=== PATIENT | male | born 1980 | race Caucasian/White ===

== ENCOUNTER 2022-03-30 10:11 | Emergency (ER) | payer SELFPAY ==
[2022-03-30 10:19] VITALS: BP 132/62; PULSE 73; RESP 18; TEMP 98.8; BMI 31.3
[2022-03-30] MEDS ORDERED: CEPHALEXIN MONOHYDRATE 500 MG CAPSULE (UD) PO ONE (11:43)
[2022-03-30] MEDS ORDERED: ACETAMINOPHEN 500 MG TABLET (FP) PO ONE (11:43)
[2022-03-30] MEDS ORDERED: DIPHTH,PERTUSS(ACELL),TET 0.5 ML DISP.SYRIN IM ONE ×2 (11:43→11:50)
[2022-03-30] MEDS ORDERED: CEPHALEXIN MONOHYDRATE 500 MG CAPSULE (UD) ONE (11:49)
[2022-03-30] MEDS ORDERED: ACETAMINOPHEN 500 MG TABLET (FP) ONE (11:49)
== END 2022-03-30 12:01 | disposition home or self-care (01) ==
LOC: JERFT 10:11
PROC: 3E0234Z Introduction of Serum, Toxoid and Vaccine into Muscle, Percutaneous Approach (ICD-10-PCS; principal; 2022-03-30)
DX: S61.412A Laceration without foreign body of left hand, initial encounter (principal); W27.0XXA Contact with workbench tool, initial encounter
CPT/HCPCS: 90715; 99284-25

== ENCOUNTER 2023-11-06 18:45 | Inpatient (IN) | payer OTHER ==
[2023-11-06 18:51] VITALS: BMI 34.4
[2023-11-06] MEDS ORDERED: ACETAMINOPHEN INJECTION 100 ML IVPB ONE (20:02)
[2023-11-06] MEDS ORDERED: FAMOTIDINE 20 MG/50 ML IVPB 20 MG/50 ML MG IVPB ONE (20:02)
[2023-11-06] MEDS ORDERED: ONDANSETRON 4 MG/2 ML VIAL ONE ×2 (20:02→22:06)
[2023-11-06] MEDS: ACETAMINOPHEN 1000 MG/100 ML BAG IVPB ONE (20:12)
[2023-11-06] MEDS: SODIUM CHLORIDE 1,000 ML IV STA ×2 (20:12→21:26)
[2023-11-06] MEDS: ONDANSETRON 4 MG/2 ML VIAL IVPUSH ONE ×2 (20:12→22:10)
[2023-11-06] MEDS: FAMOTIDINE 20 MG/50 ML IVPB 20 MG/50 ML MG IVPB ONE (20:12)
[2023-11-06 20:44] LABS: POTASSIUM 4.4 mmol/L (3.5-5.1)
[2023-11-06 20:46] LABS: ALBUMIN 3.3 g/dl (3.4-5.0)
[2023-11-06 20:49] LABS: CREATININE 0.7 mg/dL (0.55-1.3)
[2023-11-06 20:50] LABS: BILIRUBIN,TOTAL 1.1 mg/dL (0.2-1)
[2023-11-06 20:55] LABS: BLOOD UREA NITROGEN 13.1 mg/dL (7-18); TOT PROT 7.1 g/dl (6.4-8.2)
[2023-11-06 21:18] LABS: EOS % 0.8 % (0-4.5); HEMATOCRIT 37.9 % (35.4-49); HEMOGLOBIN 13.3 GM/dL (11.7-16.9); MCH 31.3 pg (25.7-33.7); MCHC 35.2 g/dl (32.0-35.9); RDW 12.9 % (11.9-15.9)
[2023-11-06 21:21] LABS: PH,URINE 5.5 (5.0-8.0); URINE APPEARANCE CLEAR; URINE BILIRUBIN NEGATIVE (NEGATIVE); URINE COLOR YELLOW; URINE GLUCOSE (UA) 3+ (NEGATIVE); URINE KETONE TRACE (NEGATIVE); URINE LEUK ESTERASE NEGATIVE (NEGATIVE); URINE NITRITE NEGATIVE (NEGATIVE); URINE PROTEIN NEGATIVE (NEGATIVE); URINE UROBILINOGEN 0.2 mg/dL (0.2-1.0)
[2023-11-06 21:21] LABS: MEAN PLT VOLUME 8.1 fl (7.5-11.1); PLATELET COUNT 296 10^3/uL (134-434); RBC 4.71 M/mm3 (4.00-5.60); WHITE BLOOD COUNT 12.6 K/mm3 (4.0-10.0)
[2023-11-06 21:22] LABS: BASO % 0.6 % (0-2.0); LYMPH % 21.1 % (8-40); MONO % 5.5 % (3.8-10.2)
[2023-11-06] MEDS: KETOROLAC TROMETHAMINE 15 MG/ML VIAL IVPUSH ONE (21:27)
[2023-11-06 21:33] LABS: VENOUS BASE EXCESS -1.2 mmol/L (-2-2); VENOUS O2 SATURATION 31.8 % (70-80); VENOUS PCO2 46.2 mmHg (38-52); VENOUS PH 7.347 (7.310-7.410)
[2023-11-06] MEDS ORDERED: MORPHINE SULFATE 2 MG/ML SYRINGE ONE (21:53)
[2023-11-06 21:58] LABS: CHOLESTEROL 354 mg/dL (50-200); LDL CHOLESTEROL (ONLY SJRH) 95 mg/dL (5-100)
[2023-11-06 22:00] LABS: HDL CHOLESTEROL 33 mg/dL (40-60)
[2023-11-06] MEDS: MORPHINE SULFATE 2 MG/ML SYRINGE IVPUSH ONE (22:00)
[2023-11-06] MEDS ORDERED: INSULIN ASPART SLIDING SCALE (NOVOLOG) 1 VIAL SQ ONE (22:56)
[2023-11-06] MEDS: INSULIN ASPART SLIDING SCALE (NOVOLOG) 1 VIAL SQ SCH (22:59)
[2023-11-07] MEDS ORDERED: KETOROLAC TROMETHAMINE 15 MG/ML VIAL ONE (01:08)
[2023-11-07] MEDS ORDERED: INSULIN (LEVEMIR) 100 UNITS/ML UNITS SQ ONE (01:09)
[2023-11-07] MEDS: INSULIN (LEVEMIR) 100 UNITS/ML UNITS SQ ONE (01:27)
[2023-11-07] MEDS: SODIUM CHLORIDE 1,000 ML IV SCH ×2 (01:28→04:00)
[2023-11-07] MEDS: KETOROLAC TROMETHAMINE 15 MG/ML VIAL IVPUSH PRN ×2 (01:28→07:58)
[2023-11-07] MEDS ORDERED: DEXTROSE 50%-WATER 25 GM/50 ML DISP.SYRIN IVPUSH PRN (01:47)
[2023-11-07] MEDS: INSULIN REGULAR 100 UNITS in SODIUM CHLORIDE 99 ML IVPB SCH ×4 (03:05→20:27)
[2023-11-07] MEDS: MUPIROCIN 2% TOPICAL OINTMENT FOR DECOLONIZATION NS SCH (03:07)
[2023-11-07] MEDS: DEXTROSE 5%-NORMAL SALINE 1,000 ML IV SCH ×2 (03:08→14:39)
[2023-11-07 03:41] LABS: COCAINE, UR NEGATIVE (NEGATIVE); METHADONE, UR NEGATIVE (NEGATIVE); URINE BARBITURATES NEGATIVE (NEGATIVE)
[2023-11-07 03:43] LABS: PHENCYCLIDINE,URINE NEGATIVE (NEGATIVE)
[2023-11-07 04:08] LABS: OPIATES, URI POSITIVE (NEGATIVE); URINE AMPHETAMINES NEGATIVE (NEGATIVE); URINE BENZODIAZEPINES NEGATIVE (NEGATIVE)
[2023-11-07 06:44] LABS: BASO % 0.8 % (0-2.0); EOS % 1.9 % (0-4.5); HEMATOCRIT 36.6 % (35.4-49); HEMOGLOBIN 13.3 GM/dL (11.7-16.9); LYMPH % 26.2 % (8-40); MCH 32.1 pg (25.7-33.7); MCHC 36.3 g/dl (32.0-35.9); MEAN CELL VOLUME 88.3 fl (80-96); MEAN PLT VOLUME 8.2 fl (7.5-11.1); MONO % 6.2 % (3.8-10.2); NEUT % 64.9 % (42.8-82.8); PLATELET COUNT 233 10^3/uL (134-434); RBC 4.14 M/mm3 (4.00-5.60); WHITE BLOOD COUNT 9.7 K/mm3 (4.0-10.0)
[2023-11-07 06:55] LABS: CHLORIDE 106 mmol/L (98-107); POTASSIUM 3.5 mmol/L (3.5-5.1); SODIUM 139 mmol/L (136-145)
[2023-11-07 06:57] LABS: ALBUMIN 2.7 g/dl (3.4-5.0); CALCIUM 7.2 mg/dL (8.5-10.1)
[2023-11-07 06:58] LABS: ANION GAP 7 mmol/L (4-13); BLOOD UREA NITROGEN 11.6 mg/dL (7-18); CO2 25 mmol/L (21-32); GLUCOSE,RANDOM 217 mg/dL (74-106); MAGNESIUM 1.6 mg/dL (1.8-2.4)
[2023-11-07] MEDS ORDERED: INSULIN (LEVEMIR) 100 UNITS/ML UNITS SQ SCH (07:00)
[2023-11-07 07:01] LABS: CREATININE 0.5 mg/dL (0.55-1.3); PHOSPHOROUS 1.9 mg/dL (2.5-4.9)
[2023-11-07 07:03] LABS: BILIRUBIN,TOTAL 0.7 mg/dL (0.2-1)
[2023-11-07 07:22] LABS: ALK PHOS 116 U/L (45-117); SGOT/AST 42 U/L (15-37); TOT PROT 5.5 g/dl (6.4-8.2)
[2023-11-07] MEDS: D5-1/2NS+20 MEQ KCL - 20 MEQ/1,000 ML INFUS.BAG IV SCH (07:57)
[2023-11-07] MEDS: MAGNESIUM 1GM/D5W - 1 GM/100 ML IVPB IVPB ONE (07:57)
[2023-11-07] MEDS: ENOXAPARIN NA (PORCINE) 40 MG/0.4 ML DISP.SYRIN SQ SCH (09:23)
[2023-11-07] MEDS: PANTOPRAZOLE SODIUM 40 MG VIAL IVPUSH SCH (09:23)
[2023-11-07] MEDS ORDERED: ENOXAPARIN NA (PORCINE) 40 MG/0.4 ML DISP.SYRIN SQ SCH (10:00)
[2023-11-07] MEDS: POTASSIUM PHOSPHATE 30 MM in DEXTROSE 5%-WATER - 250 ML IVPB ONE (14:05)
[2023-11-07] MEDS: INSULIN DRIP - PLEASE ORDER UNDER SETS NR SCH (14:39)
[2023-11-07] MEDS: D5-LR+20 MEQ KCL - 20 MEQ/1,000 ML INFUS.BAG IV SCH (20:25)
[2023-11-07] MEDS: CHLORHEXIDINE GLUCONATE 4% CLEANSER FOR DECOLONIZATION TP SCH (21:08)
[2023-11-07 23:08] LABS: POTASSIUM 3.6 mmol/L (3.5-5.1)
[2023-11-07 23:10] LABS: ALBUMIN 2.7 g/dl (3.4-5.0); CALCIUM 8.1 mg/dL (8.5-10.1)
[2023-11-07 23:11] LABS: BLOOD UREA NITROGEN 6.9 mg/dL (7-18)
[2023-11-07 23:15] LABS: BILIRUBIN,TOTAL 0.5 mg/dL (0.2-1); CREATININE 0.6 mg/dL (0.55-1.3); TOT PROT 5.5 g/dl (6.4-8.2)
[2023-11-08] MEDS: INSULIN (LEVEMIR) 100 UNITS/ML UNITS SQ SCH ×2 (00:54→22:20)
[2023-11-08] MEDS: D5-LR+20 MEQ KCL - 20 MEQ/1,000 ML INFUS.BAG IV SCH (01:04)
[2023-11-08] MEDS ORDERED: DEXTROSE 50%-WATER - 25 GM/50 ML VIAL IVPUSH PRN (01:04)
[2023-11-08] MEDS: INSULIN ASPART SLIDING SCALE (NOVOLOG) 1 VIAL SQ SCH ×2 (06:48→17:44)
[2023-11-08] MEDS: GEMFIBROZIL 600 MG TABLET (FP) PO SCH ×2 (06:51→17:27)
[2023-11-08 07:00] LABS: HEMATOCRIT 37.4 % (35.4-49); MCH 31.1 pg (25.7-33.7); MCHC 34.7 g/dl (32.0-35.9); MEAN CELL VOLUME 89.6 fl (80-96); MEAN PLT VOLUME 8.2 fl (7.5-11.1); PLATELET COUNT 229 10^3/uL (134-434); RBC 4.17 M/mm3 (4.00-5.60); RDW 13.5 % (11.9-15.9); WHITE BLOOD COUNT 9.4 K/mm3 (4.0-10.0)
[2023-11-08 07:16] LABS: POTASSIUM 3.8 mmol/L (3.5-5.1)
[2023-11-08 07:23] LABS: CALCIUM 8.3 mg/dL (8.5-10.1)
[2023-11-08 07:24] LABS: ALBUMIN 2.7 g/dl (3.4-5.0); BLOOD UREA NITROGEN 7.5 mg/dL (7-18); MAGNESIUM 1.9 mg/dL (1.8-2.4)
[2023-11-08 07:28] LABS: BILIRUBIN,TOTAL 0.7 mg/dL (0.2-1); CREATININE 0.5 mg/dL (0.55-1.3); PHOSPHOROUS 3.4 mg/dL (2.5-4.9); TOT PROT 5.5 g/dl (6.4-8.2)
[2023-11-08 14:38] LABS: PHOSPHOROUS 2.8 mg/dL (2.5-4.9)
[2023-11-08] MEDS ORDERED: DEXTROSE 50%-WATER 25 GM/50 ML DISP.SYRIN IVPUSH PRN (14:50)
[2023-11-08] MEDS ORDERED: LORazepam 2 MG TABLET PO PRN (16:14)
[2023-11-08] MEDS ORDERED: LORazepam 1 MG TABLET PO PRN (16:29)
[2023-11-08] MEDS: KETOROLAC TROMETHAMINE 15 MG/ML VIAL IVPUSH PRN (17:24)
[2023-11-08] MEDS ORDERED: CHLORHEXIDINE GLUCONATE 4% CLEANSER FOR DECOLONIZATION TP SCH (22:00)
[2023-11-08] MEDS ORDERED: MUPIROCIN 2% TOPICAL OINTMENT FOR DECOLONIZATION NS SCH (22:00)
[2023-11-08] MEDS ORDERED: ATORVASTATIN CA 40 MG TABLET (FP) PO SCH (22:00)
[2023-11-08] MEDS ORDERED: INSULIN (LEVEMIR) 100 UNITS/ML UNITS SQ SCH (22:00)
[2023-11-08] MEDS: ATORVASTATIN CA 40 MG TABLET (FP) PO SCH (22:22)
[2023-11-08 23:55] VITALS: RESP 18
[2023-11-09] MEDS: ENOXAPARIN NA (PORCINE) 40 MG/0.4 ML DISP.SYRIN SQ SCH (09:15)
[2023-11-09] MEDS: THIAMINE 100 MG TABLET PO SCH (09:16)
[2023-11-09] MEDS: MULTIVITAMINS (DAILY MVI) TABLET (FP) PO SCH (09:16)
[2023-11-09] MEDS: CYANOCOBALAMIN (VITAMIN B-12) 100 MCG TABLET PO SCH (09:16)
[2023-11-09] MEDS: PANTOPRAZOLE SODIUM 40 MG VIAL IVPUSH SCH (09:16)
[2023-11-09 12:24] LABS: BASO % 0.7 % (0-2.0); EOS % 5.2 % (0-4.5); HEMATOCRIT 40.9 % (35.4-49); HEMOGLOBIN 13.9 GM/dL (11.7-16.9); LYMPH % 28.4 % (8-40); MCH 30.9 pg (25.7-33.7); MCHC 33.9 g/dl (32.0-35.9); MEAN PLT VOLUME 8.6 fl (7.5-11.1); MONO % 7.8 % (3.8-10.2); NEUT % 57.9 % (42.8-82.8); PLATELET COUNT 234 10^3/uL (134-434); RBC 4.49 M/mm3 (4.00-5.60); RDW 13.7 % (11.9-15.9); WHITE BLOOD COUNT 6.5 K/mm3 (4.0-10.0)
[2023-11-09 12:46] LABS: POTASSIUM 4.1 mmol/L (3.5-5.1)
[2023-11-09 12:48] LABS: CALCIUM 8.5 mg/dL (8.5-10.1)
[2023-11-09 12:49] LABS: MAGNESIUM 1.9 mg/dL (1.8-2.4)
[2023-11-09 12:52] LABS: CREATININE 0.6 mg/dL (0.55-1.3); PHOSPHOROUS 2.8 mg/dL (2.5-4.9)
[2023-11-09 12:53] LABS: BILIRUBIN,TOTAL 0.9 mg/dL (0.2-1); TOT PROT 6.3 g/dl (6.4-8.2)
[2023-11-09 15:43] VITALS: BP 109/72; PULSE 56; TEMP 98.8
== END 2023-11-09 14:20 | disposition home or self-care (01) | DRG 282 ==
LOC: JER 18:45 → JERBED 21:35 → JICU 11-07 02:43 → J5S 11-08 14:32
PROVIDERS: ADMIT Internal Medicine; ATTEND Internal Medicine
DX: K85.90 Acute pancreatitis without necrosis or infection, unspecified (principal); E11.65 Type 2 diabetes mellitus with hyperglycemia; E78.1 Pure hyperglyceridemia; K76.0 Fatty (change of) liver, not elsewhere classified; F10.10 Alcohol abuse, uncomplicated; E83.51 Hypocalcemia; F17.210 Nicotine dependence, cigarettes, uncomplicated
CPT/HCPCS: 0241U-QW; 36415; 76705-TC; 80053; 80061; 80307; 81003; 82010; 82803; 82962; 83036; 83605; 83690; 83735; 84100; 84132; 84478; 85025; 85027; 87086; 93005; 93010; 99285-25; J0131

== ENCOUNTER 2023-11-25 15:10 | Emergency (ER) | payer OTHER ==
[2023-11-25 15:23] VITALS: PULSE 46; BMI 28.3
[2023-11-25] MEDS ORDERED: ASPIRIN 81 MG CHEWABLE TABLETS ONE (16:29)
[2023-11-25] MEDS: ASPIRIN 81 MG CHEWABLE TABLETS PO ONE (16:32)
[2023-11-25 16:40] LABS: BASO % 0.9 % (0-2.0); EOS % 4.3 % (0-4.5); HEMATOCRIT 40.3 % (35.4-49); HEMOGLOBIN 13.9 GM/dL (11.7-16.9); LYMPH % 41.1 % (8-40); MCH 31.1 pg (25.7-33.7); MCHC 34.5 g/dl (32.0-35.9); MEAN PLT VOLUME 7.3 fl (7.5-11.1); MONO % 6.5 % (3.8-10.2); NEUT % 47.2 % (42.8-82.8); PLATELET COUNT 254 10^3/uL (134-434); RBC 4.48 M/mm3 (4.00-5.60); WHITE BLOOD COUNT 7.5 K/mm3 (4.0-10.0)
[2023-11-25 16:54] LABS: POTASSIUM 4.2 mmol/L (3.5-5.1)
[2023-11-25 16:55] LABS: CALCIUM 8.7 mg/dL (8.5-10.1)
[2023-11-25 16:56] LABS: ALBUMIN 3.6 g/dl (3.4-5.0); BLOOD UREA NITROGEN 12.7 mg/dL (7-18)
[2023-11-25 16:59] LABS: CREATININE 0.8 mg/dL (0.55-1.3)
[2023-11-25 17:01] LABS: BILIRUBIN,TOTAL 0.4 mg/dL (0.2-1); TOT PROT 6.7 g/dl (6.4-8.2)
[2023-11-25 17:57] LABS: HIV INTERPRETATION NEGATIVE (NEGATIVE)
[2023-11-25 19:13] VITALS: BP 126/82; RESP 16; TEMP 98
== END 2023-11-25 19:13 | disposition home or self-care (01) ==
LOC: JER 15:10
DX: R07.9 Chest pain, unspecified (principal); R00.1 Bradycardia, unspecified; Z20.822 Contact with and (suspected) exposure to COVID-19
CPT/HCPCS: 0241U-QW; 36415; 71045-TC-FY; 80053; 84484; 85025; 86803; 87389; 93005; 93010; 99285-25

== ENCOUNTER 2024-04-09 16:01 | Inpatient (IN) | payer OTHER ==
[2024-04-09] MEDS ORDERED: FAMOTIDINE 20 MG/50 ML IVPB 20 MG/50 ML MG IVPB ONE (17:04)
[2024-04-09] MEDS ORDERED: ACETAMINOPHEN INJECTION 100 ML ONE (17:04)
[2024-04-09] MEDS: ACETAMINOPHEN 1000 MG/100 ML BAG IVPB ONE (17:23)
[2024-04-09] MEDS: FAMOTIDINE 20 MG/50 ML IVPB 20 MG/50 ML MG IVPB ONE (17:23)
[2024-04-09 17:28] LABS: VENOUS BASE EXCESS -1.5 mmol/L (-2-2); VENOUS O2 SATURATION 27.1 % (70-80); VENOUS PCO2 46.7 mmHg (38-52); VENOUS PH 7.34 (7.310-7.410)
[2024-04-09 17:37] LABS: BASO % 0.4 % (0-2.0); EOS % 0.8 % (0-4.5); HEMATOCRIT 44.5 % (35.4-49); HEMOGLOBIN 17.4 GM/dL (11.7-16.9); LYMPH % 24.6 % (8-40); MCH 33.5 pg (25.7-33.7); MCHC 39.2 g/dl (32.0-35.9); MEAN CELL VOLUME 85.3 fl (80-96); MEAN PLT VOLUME 7.8 fl (7.5-11.1); MONO % 5.6 % (3.8-10.2); NEUT % 68.6 % (42.8-82.8); PLATELET COUNT 343 10^3/uL (134-434); RBC 5.21 M/mm3 (4.00-5.60); RDW 12.8 % (11.9-15.9); WHITE BLOOD COUNT 12.5 K/mm3 (4.0-10.0)
[2024-04-09 18:00] LABS: CHLORIDE 97 mmol/L (98-107); POTASSIUM 4.8 mmol/L (3.5-5.1); SODIUM 130 mmol/L (136-145)
[2024-04-09 18:03] LABS: GLUCOSE,RANDOM 281 mg/dL (74-106)
[2024-04-09 18:04] LABS: ANION GAP 6 mmol/L (4-13); CO2 28 mmol/L (21-32); MAGNESIUM 1.8 mg/dL (1.8-2.4)
[2024-04-09 18:06] LABS: CREATININE 0.8 mg/dL (0.55-1.3)
[2024-04-09 18:13] LABS: ALBUMIN 3.6 g/dl (3.4-5.0); ALK PHOS 173 U/L (45-117); BILIRUBIN,TOTAL 1.3 mg/dL (0.2-1); BLOOD UREA NITROGEN 15.3 mg/dL (7-18); CALCIUM 6.6 mg/dL (8.5-10.1)
[2024-04-09 18:51] LABS: HIV INTERPRETATION NEGATIVE (NEGATIVE)
[2024-04-09 19:28] LABS: SGOT/AST 73 U/L (15-37); SGPT/ALT 68 U/L (13-61)
[2024-04-09] MEDS: SODIUM CHLORIDE 0.9% 500 ML INFUS.BAG IV ONE (20:51)
[2024-04-09 21:20] LABS: CHOLESTEROL 322 mg/dL (50-200)
[2024-04-09 21:21] LABS: LDL CHOLESTEROL (ONLY SJRH) 110 mg/dL (5-100)
[2024-04-09 21:23] LABS: HDL CHOLESTEROL 32 mg/dL (40-60)
[2024-04-09 23:07] LABS: EPI CELLS 5 /uL (0-25.1); HYALINE CASTS 0 /uL (0-3.1); PH,URINE 5.5 (5.0-8.0); URINE APPEARANCE CLEAR; URINE BACTERIA 33 /uL (0-1359); URINE BILIRUBIN NEGATIVE (NEGATIVE); URINE COLOR YELLOW; URINE GLUCOSE (UA) 2+ (NEGATIVE); URINE KETONE 1+ (NEGATIVE); URINE LEUK ESTERASE NEGATIVE (NEGATIVE); URINE NITRITE NEGATIVE (NEGATIVE); URINE PROTEIN 1+ (NEGATIVE); URINE RBC 10 /uL (0-23.9); URINE WBC 10 /uL (0-25.8)
[2024-04-09 23:29] LABS: POTASSIUM 3.9 mmol/L (3.5-5.1); SODIUM 134 mmol/L (136-145)
[2024-04-09 23:30] LABS: CHLORIDE 102 mmol/L (98-107)
[2024-04-09 23:33] LABS: ALBUMIN 3.3 g/dl (3.4-5.0); ANION GAP 6 mmol/L (4-13); CO2 26 mmol/L (21-32); GLUCOSE,RANDOM 261 mg/dL (74-106); MAGNESIUM 1.7 mg/dL (1.8-2.4)
[2024-04-09 23:34] LABS: BLOOD UREA NITROGEN 15.5 mg/dL (7-18)
[2024-04-09 23:36] LABS: CREATININE 0.7 mg/dL (0.55-1.3); PHOSPHOROUS 2.5 mg/dL (2.5-4.9)
[2024-04-09 23:37] LABS: BILIRUBIN,TOTAL 0.8 mg/dL (0.2-1)
[2024-04-09 23:38] LABS: TOT PROT 6.8 g/dl (6.4-8.2)
[2024-04-09 23:39] LABS: ALK PHOS 144 U/L (45-117)
[2024-04-09] MEDS ORDERED: ONDANSETRON 4 MG/2 ML VIAL ONE (23:43)
[2024-04-09] MEDS ORDERED: PIPERACILLIN/TAZOB 4.5 GM 4.5 GM/100 ML BAG IVPB ONE (23:43)
[2024-04-09] MEDS: PIPERACILLIN/TAZOB 4.5 GM 4.5 GM in DEXTROSE 5%-WATER 100 ML IVPB ONE (23:54)
[2024-04-09] MEDS: LACTATED RINGERS SOLUTION 1000 ML INFUS.BAG IV ONE (23:54)
[2024-04-09] MEDS: ONDANSETRON 4 MG/2 ML VIAL IVPUSH ONE (23:54)
[2024-04-10 00:03] LABS: SGOT/AST 70 U/L (15-37); SGPT/ALT < 120 U/L (13-61)
[2024-04-10] MEDS ORDERED: VANCOMYCIN 1 GM PREMIX (F) 1 GM/200 ML BAG ONE (00:08)
[2024-04-10] MEDS: INSULIN REGULAR 100 UNITS in SODIUM CHLORIDE 99 ML IVPB SCH (00:28)
[2024-04-10] MEDS: DEXTROSE 5%-NORMAL SALINE 1,000 ML IV SCH (00:29)
[2024-04-10] MEDS: VANCOMYCIN 1,000 MG in DEXTROSE 5%-WATER - 250 ML IVPB ONE (00:30)
[2024-04-10 01:15] LABS: VENOUS BASE EXCESS -1.4 mmol/L (-2-2); VENOUS O2 SATURATION 58.7 % (70-80); VENOUS PCO2 45.4 mmHg (38-52); VENOUS PH 7.35 (7.310-7.410)
[2024-04-10 01:39] LABS: CHOLESTEROL 299 mg/dL (50-200)
[2024-04-10 01:40] LABS: LDL CHOLESTEROL (ONLY SJRH) 82 mg/dL (5-100)
[2024-04-10 01:41] LABS: HDL CHOLESTEROL 33 mg/dL (40-60)
[2024-04-10] MEDS: morphine CARPU-JECT 4 MG/1 ML DISP.SYRIN IVPUSH ONE (01:46)
[2024-04-10] MEDS: LACTATED RINGERS SOLUTION 1000 ML INFUS.BAG IV ONE (02:40)
[2024-04-10 03:38] LABS: POTASSIUM 3.3 mmol/L (3.5-5.1)
[2024-04-10 03:40] LABS: ALBUMIN 2.9 g/dl (3.4-5.0); CALCIUM 7.4 mg/dL (8.5-10.1)
[2024-04-10 03:41] LABS: MAGNESIUM 1.8 mg/dL (1.8-2.4)
[2024-04-10] MEDS ORDERED: KETOROLAC TROMETHAMINE 15 MG/ML VIAL ONE (03:42)
[2024-04-10] MEDS ORDERED: POTASSIUM CHLORIDE ORAL LIQUID 20 MEQ/15 ML ONE (03:43)
[2024-04-10 03:44] LABS: CREATININE 0.7 mg/dL (0.55-1.3); PHOSPHOROUS 1.8 mg/dL (2.5-4.9)
[2024-04-10 03:45] LABS: BILIRUBIN,TOTAL 0.7 mg/dL (0.2-1)
[2024-04-10] MEDS: POTASSIUM CHLORIDE ORAL LIQUID 20 MEQ/15 ML PO ONE ×2 (03:49→18:40)
[2024-04-10] MEDS: KETOROLAC TROMETHAMINE 15 MG/ML VIAL IVPUSH ONE (03:49)
[2024-04-10] MEDS: DEXTROSE 50%-WATER - 25 GM/50 ML VIAL IVPUSH PRN (03:49)
[2024-04-10 05:19] LABS: BLOOD UREA NITROGEN 12.9 mg/dL (7-18)
[2024-04-10] MEDS: KCL 10 MEQ IVPB 10 MEQ/100 ML INFUS.BAG IVPB SCH (05:21)
[2024-04-10] MEDS: DEXTROSE 10%-WATER - 1,000 ML IV SCH ×2 (05:27→13:16)
[2024-04-10] MEDS: LACTATED RINGERS SOLUTION 1,000 ML with POTASSIUM CHLORIDE 20 MEQ IV ONE (05:31)
[2024-04-10 07:06] LABS: POTASSIUM 3.9 mmol/L (3.5-5.1)
[2024-04-10 07:12] LABS: CALCIUM 7.5 mg/dL (8.5-10.1)
[2024-04-10 07:13] LABS: ALBUMIN 2.8 g/dl (3.4-5.0); BLOOD UREA NITROGEN 11.4 mg/dL (7-18); MAGNESIUM 1.6 mg/dL (1.8-2.4)
[2024-04-10 07:16] LABS: CREATININE 0.6 mg/dL (0.55-1.3); PHOSPHOROUS 2.4 mg/dL (2.5-4.9)
[2024-04-10 07:17] LABS: BILIRUBIN,TOTAL 0.6 mg/dL (0.2-1)
[2024-04-10 07:18] LABS: TOT PROT 5.8 g/dl (6.4-8.2)
[2024-04-10 08:30] LABS: BASO % 0.3 % (0-2.0); EOS % 2.7 % (0-4.5); HEMOGLOBIN 13.7 GM/dL (11.7-16.9); LYMPH % 26.2 % (8-40); MCH 30.5 pg (25.7-33.7); MCHC 35.2 g/dl (32.0-35.9); MEAN CELL VOLUME 86.7 fl (80-96); MEAN PLT VOLUME 7.9 fl (7.5-11.1); NEUT % 63.8 % (42.8-82.8); PLATELET COUNT 249 10^3/uL (134-434); RDW 12.9 % (11.9-15.9); WHITE BLOOD COUNT 9.4 K/mm3 (4.0-10.0)
[2024-04-10] MEDS: MAGNESIUM 2GM/50ML STERILE WATER IVPB IVPB ONE (08:30)
[2024-04-10] MEDS ORDERED: NIACIN 500 MG TABLET PO SCH (10:00)
[2024-04-10] MEDS ORDERED: ACETAMINOPHEN 1000 MG/100 ML BAG IVPB PRN (11:10)
[2024-04-10] MEDS ORDERED: GEMFIBROZIL 600 MG TABLET (FP) PO SCH (16:30)
[2024-04-10 19:13] LABS: POTASSIUM 3.6 mmol/L (3.5-5.1)
[2024-04-10 19:15] LABS: BLOOD UREA NITROGEN 7.1 mg/dL (7-18); CALCIUM 8.5 mg/dL (8.5-10.1)
[2024-04-10 19:19] LABS: CREATININE 0.6 mg/dL (0.55-1.3)
[2024-04-11 07:20] LABS: BASO % 0.8 % (0-2.0); EOS % 5.9 % (0-4.5); HEMATOCRIT 41.8 % (35.4-49); HEMOGLOBIN 14.2 GM/dL (11.7-16.9); LYMPH % 26.9 % (8-40); MCH 29.8 pg (25.7-33.7); MEAN CELL VOLUME 87.7 fl (80-96); MEAN PLT VOLUME 7.4 fl (7.5-11.1); MONO % 6.7 % (3.8-10.2); NEUT % 59.7 % (42.8-82.8); PLATELET COUNT 236 10^3/uL (134-434); RBC 4.76 M/mm3 (4.00-5.60); RDW 13.2 % (11.9-15.9); WHITE BLOOD COUNT 8.4 K/mm3 (4.0-10.0)
[2024-04-11 07:33] LABS: POTASSIUM 4.4 mmol/L (3.5-5.1)
[2024-04-11 07:39] LABS: CALCIUM 8.6 mg/dL (8.5-10.1)
[2024-04-11 07:40] LABS: BLOOD UREA NITROGEN 9.1 mg/dL (7-18); MAGNESIUM 1.9 mg/dL (1.8-2.4)
[2024-04-11 07:42] LABS: PHOSPHOROUS 2.9 mg/dL (2.5-4.9)
[2024-04-11 07:43] LABS: BILIRUBIN,TOTAL 0.9 mg/dL (0.2-1); CREATININE 0.6 mg/dL (0.55-1.3)
[2024-04-11 07:44] LABS: TOT PROT 6.3 g/dl (6.4-8.2)
[2024-04-11] MEDS: MAGNESIUM SULF 50% (8.12 MEQ/2 ML-1 GM VIAL) IVPB ONE (08:43)
[2024-04-11] MEDS: INSULIN (LEVEMIR) 100 UNITS/ML UNITS SQ SCH (09:17)
[2024-04-11] MEDS: ENOXAPARIN NA (PORCINE) 40 MG/0.4 ML DISP.SYRIN SQ SCH (09:18)
[2024-04-11] MEDS: LACTATED RINGERS SOLUTION 1,000 ML/1,000 ML INFUS.BAG IV SCH (09:18)
[2024-04-11] MEDS: NAPH,MB-DB/K PH,MBDB POWDER PACKET PO ONE (11:26)
[2024-04-11] MEDS: INSULIN ASPART SLIDING SCALE (NOVOLOG) 1 VIAL SQ SCH (12:38)
[2024-04-11 13:01] VITALS: PULSE 77; RESP 19
[2024-04-11 13:34] VITALS: BMI 30.7
[2024-04-11 15:19] VITALS: BP 119/72; TEMP 98.6
[2024-04-11] MEDS ORDERED: GEMFIBROZIL 600 MG TABLET (FP) PO SCH (16:30)
== END 2024-04-11 16:55 | disposition home or self-care (01) | DRG 282 ==
LOC: JER 16:01 → JERBED 22:45 → J2W 04-10 04:17
PROVIDERS: ADMIT Internal Medicine Pulmonary Disease; ATTEND Internal Medicine Pulmonary Disease
DX: K85.90 Acute pancreatitis without necrosis or infection, unspecified (principal); J12.82 Pneumonia due to coronavirus disease 2019; U07.1 COVID-19; E11.65 Type 2 diabetes mellitus with hyperglycemia; E83.51 Hypocalcemia; E78.5 Hyperlipidemia, unspecified; F10.90 Alcohol use, unspecified, uncomplicated; R74.01 Elevation of levels of liver transaminase levels
CPT/HCPCS: 0241U-QW; 36415; 71046-TC-FY; 74177-TC; 76705-TC; 80048; 80053; 80061; 81003; 82010; 82803; 82962; 83036; 83605; 83690; 83735; 84100; 84478; 84484; 85025; 86803; 87086; 87389; 93005; 93010; 99285-25; J0131

== ENCOUNTER 2024-08-17 13:57 | Inpatient (IN) | payer OTHER ==
[2024-08-17] MEDS ORDERED: FAMOTIDINE 20 MG/50 ML IVPB 20 MG/50 ML MG IVPB ONE (15:15)
[2024-08-17] MEDS: FAMOTIDINE 20 MG/50 ML IVPB 20 MG/50 ML MG IVPB ONE (15:33)
[2024-08-17] MEDS: SODIUM CHLORIDE 0.9% 500 ML INFUS.BAG IV ONE ×2 (15:33→16:36)
[2024-08-17 15:46] LABS: ABSOLUTE IMMATURE GRANULOCYTES 0.03 x10^3/uL (0.0-0.031); BASOPHILS # 0.07 x10^3/uL (0.01-0.08); EOSINOPHIL % 2.4 % (0.8-7.0); HEMATOCRIT 47.3 % (40.1-51.0); HEMOGLOBIN 17.3 g/dL (13.7-17.5); MCHC 36.6 g/dl (32.3-36.5); MEAN CELL VOLUME 85.1 fl (79.0-92.2); MEAN PLT VOLUME 9.5 fl (9.4-12.4); MONOCYTE % 5.9 % (5.3-12.2); PLATELET COUNT 270 x10^3/uL (163-337); RDW 11.9 % (12.1-15.9)
[2024-08-17 16:03] LABS: CHLORIDE 96 mmol/L (98-107); POTASSIUM 3.9 mmol/L (3.5-5.1); SODIUM 134 mmol/L (136-145)
[2024-08-17 16:05] LABS: ALBUMIN 3.8 g/dl (3.4-5.0); ANION GAP 10 mmol/L (4-13); CO2 28 mmol/L (21-32); GLUCOSE,RANDOM 287 mg/dL (74-106)
[2024-08-17 16:10] LABS: BILIRUBIN,TOTAL 0.8 mg/dL (0.2-1); CHOLESTEROL 315 mg/dL (50-200); CREATININE 0.8 mg/dL (0.55-1.3); LDL CHOLESTEROL (ONLY SJRH) 81 mg/dL (5-100)
[2024-08-17 16:11] LABS: ALK PHOS 187 U/L (45-117); HDL CHOLESTEROL 43 mg/dL (40-60)
[2024-08-17] MEDS ORDERED: morphine SULFATE 4 MG/ML VIAL ONE (16:49)
[2024-08-17 16:57] LABS: BLOOD UREA NITROGEN 14.3 mg/dL (7-18); CALCIUM 8.2 mg/dL (8.5-10.1); TOT PROT 7.7 g/dl (6.4-8.2)
[2024-08-17] MEDS: morphine CARPU-JECT 4 MG/1 ML DISP.SYRIN IVPUSH ONE (17:01)
[2024-08-17] MEDS ORDERED: INSULIN REGULAR HUMAN 100 UNITS/ML *VIAL ONE (17:38)
[2024-08-17] MEDS: INSULIN REGULAR 100 UNITS in SODIUM CHLORIDE 99 ML IVPB SCH ×3 (18:01→22:07)
[2024-08-17] MEDS: INSULIN DRIP - PLEASE ORDER UNDER SETS NR ONE (18:03)
[2024-08-17] MEDS: DEXTROSE 5%-NORMAL SALINE 1,000 ML IV SCH ×2 (18:33→22:26)
[2024-08-17] MEDS ORDERED: ALBUTEROL SO4 2.5/IPRATROPIUM 0.5 INH SOL 3 ML VIAL.NEB. NEB PRN (18:34)
[2024-08-17] MEDS: levETIRAcetam 500 MG/5 ML INJECTION VIAL IVPB ONE (20:06)
[2024-08-17 20:36] LABS: URINE APPEARANCE CLEAR; URINE BILIRUBIN NEGATIVE (NEGATIVE); URINE COLOR YELLOW; URINE GLUCOSE (UA) 3+ (NEGATIVE); URINE KETONE NEGATIVE (NEGATIVE); URINE LEUK ESTERASE NEGATIVE (NEGATIVE); URINE NITRITE NEGATIVE (NEGATIVE); URINE PROTEIN NEGATIVE (NEGATIVE); URINE UROBILINOGEN 0.2 mg/dL (0.2-1.0)
[2024-08-17 20:37] LABS: COCAINE, UR NEGATIVE (NEGATIVE); METHADONE, UR NEGATIVE (NEGATIVE); PHENCYCLIDINE,URINE NEGATIVE (NEGATIVE); URINE BENZODIAZEPINES NEGATIVE (NEGATIVE)
[2024-08-17 20:38] LABS: OPIATES, URI POSITIVE (NEGATIVE); URINE BARBITURATES NEGATIVE (NEGATIVE)
[2024-08-17 20:45] LABS: POTASSIUM 3.5 mmol/L (3.5-5.1)
[2024-08-17 20:49] LABS: ALBUMIN 3.4 g/dl (3.4-5.0); BLOOD UREA NITROGEN 11.8 mg/dL (7-18); CALCIUM 8.4 mg/dL (8.5-10.1)
[2024-08-17 20:54] LABS: BILIRUBIN,TOTAL 0.6 mg/dL (0.2-1); CREATININE 0.6 mg/dL (0.55-1.3); TOT PROT 6.6 g/dl (6.4-8.2)
[2024-08-17] MEDS ORDERED: KCL 20 MEQ PREMIX BAG 20 MEQ/100 ML INFUS.BAG IVPB SCH (21:30)
[2024-08-17] MEDS ORDERED: INSULIN DRIP - PLEASE ORDER UNDER SETS NR ONE (21:39)
[2024-08-17] MEDS: D5-NS + 20 MEQ KCL - 20 MEQ/1,000 ML INFUS.BAG IV SCH ×2 (21:47→21:59)
[2024-08-17] MEDS: CHLORHEXIDINE GLUCONATE 4% CLEANSER FOR DECOLONIZATION TP SCH (21:47)
[2024-08-17] MEDS: MUPIROCIN 2% TOPICAL OINTMENT FOR DECOLONIZATION NS SCH (21:47)
[2024-08-17] MEDS: PANTOPRAZOLE SODIUM 40 MG VIAL IVPUSH SCH (21:48)
[2024-08-17] MEDS ORDERED: PANTOPRAZOLE 40 MG TABLET PO SCH (22:00)
[2024-08-17] MEDS: KCL 10 MEQ IVPB 10 MEQ/100 ML INFUS.BAG IVPB SCH (22:07)
[2024-08-17 22:12] LABS: MAGNESIUM 1.8 mg/dL (1.8-2.4)
[2024-08-17 22:14] LABS: PHOSPHOROUS 2.3 mg/dL (2.5-4.9)
[2024-08-17] MEDS: MAGNESIUM SULFATE IN WATER 2 GM/50 ML IVPB IVPB ONE (22:47)
[2024-08-18] MEDS: POTASSIUM PHOSPHATE 30 MM in DEXTROSE 5%-WATER - 250 ML IVPB ONE (00:49)
[2024-08-18 00:50] LABS: POTASSIUM 3.5 mmol/L (3.5-5.1)
[2024-08-18 00:53] LABS: ALBUMIN 3.1 g/dl (3.4-5.0); CALCIUM 8.3 mg/dL (8.5-10.1)
[2024-08-18 00:56] LABS: CHOLESTEROL 248 mg/dL (50-200); CREATININE 0.6 mg/dL (0.55-1.3)
[2024-08-18 00:57] LABS: LDL CHOLESTEROL (ONLY SJRH) 43 mg/dL (5-100)
[2024-08-18 00:58] LABS: BILIRUBIN,TOTAL 0.4 mg/dL (0.2-1); HDL CHOLESTEROL 38 mg/dL (40-60); TOT PROT 6.1 g/dl (6.4-8.2)
[2024-08-18 01:00] VITALS: BMI 28.4
[2024-08-18] MEDS ORDERED: levETIRAcetam 500 MG/5 ML INJECTION VIAL IVPB SCH (06:00)
[2024-08-18] MEDS ORDERED: methylPREDNISolone NA SUCC 40 MG/1 ML VIAL IVPUSH SCH (06:00)
[2024-08-18 07:04] LABS: INR 0.99 (0.83-1.09); PROTHROMBIN TIME (PATIENT) 10.9 SEC (9.7-13.0)
[2024-08-18 07:08] LABS: POTASSIUM 3.7 mmol/L (3.5-5.1)
[2024-08-18 07:10] LABS: HEMATOCRIT 39.3 % (40.1-51.0); HEMOGLOBIN 13.6 g/dL (13.7-17.5); MCHC 34.6 g/dl (32.3-36.5); MEAN PLT VOLUME 10.1 fl (9.4-12.4); PLATELET COUNT 218 x10^3/uL (163-337); RDW 12.2 % (12.1-15.9)
[2024-08-18 07:13] LABS: CALCIUM 7.8 mg/dL (8.5-10.1)
[2024-08-18 07:14] LABS: ALBUMIN 2.8 g/dl (3.4-5.0); BLOOD UREA NITROGEN 8.9 mg/dL (7-18); MAGNESIUM 2.2 mg/dL (1.8-2.4)
[2024-08-18 07:16] LABS: PHOSPHOROUS 4.5 mg/dL (2.5-4.9)
[2024-08-18 07:17] LABS: CREATININE 0.5 mg/dL (0.55-1.3)
[2024-08-18 07:18] LABS: BILIRUBIN,TOTAL 0.4 mg/dL (0.2-1); TOT PROT 5.5 g/dl (6.4-8.2)
[2024-08-18 07:25] LABS: CHOLESTEROL 209 mg/dL (50-200)
[2024-08-18 07:26] LABS: LDL CHOLESTEROL (ONLY SJRH) 43 mg/dL (5-100)
[2024-08-18 07:28] LABS: HDL CHOLESTEROL 41 mg/dL (40-60)
[2024-08-18] MEDS: ENOXAPARIN NA (PORCINE) 40 MG/0.4 ML DISP.SYRIN SQ SCH (10:15)
[2024-08-18 10:16] LABS: URINE AMPHETAMINES NEGATIVE (NEGATIVE)
[2024-08-18 10:48] LABS: ALBUMIN 2.7 g/dl (3.4-5.0); BLOOD UREA NITROGEN 7.2 mg/dL (7-18); CALCIUM 8.6 mg/dL (8.5-10.1)
[2024-08-18 10:51] LABS: CREATININE 0.5 mg/dL (0.55-1.3)
[2024-08-18 10:54] LABS: BILIRUBIN,TOTAL 0.6 mg/dL (0.2-1); TOT PROT 5.5 g/dl (6.4-8.2)
[2024-08-18] MEDS: INSULIN GLARGINE (LANTUS) 100 UNITS/ML UNITS SQ SCH ×2 (12:51→21:27)
[2024-08-18 13:57] LABS: POTASSIUM 4.1 mmol/L (3.5-5.1)
[2024-08-18 14:00] LABS: ALBUMIN 2.9 g/dl (3.4-5.0); BLOOD UREA NITROGEN 6.6 mg/dL (7-18); CALCIUM 8.3 mg/dL (8.5-10.1)
[2024-08-18 14:02] LABS: CREATININE 0.6 mg/dL (0.55-1.3)
[2024-08-18 14:04] LABS: BILIRUBIN,TOTAL 0.6 mg/dL (0.2-1); TOT PROT 5.8 g/dl (6.4-8.2)
[2024-08-18] MEDS ORDERED: INSULIN ASPART SLIDING SCALE (NOVOLOG) 1 VIAL SQ SCH (16:30)
[2024-08-18] MEDS: INSULIN ASPART SLIDING SCALE (NOVOLOG) 1 VIAL SQ SCH (17:28)
[2024-08-18 18:11] LABS: POTASSIUM 4.2 mmol/L (3.5-5.1)
[2024-08-18 18:12] LABS: CALCIUM 8.9 mg/dL (8.5-10.1)
[2024-08-18 18:13] LABS: ALBUMIN 3.2 g/dl (3.4-5.0); BLOOD UREA NITROGEN 6.1 mg/dL (7-18)
[2024-08-18 18:16] LABS: CREATININE 0.6 mg/dL (0.55-1.3)
[2024-08-18 18:18] LABS: TOT PROT 6.3 g/dl (6.4-8.2)
[2024-08-18 18:19] LABS: BILIRUBIN,TOTAL 1.1 mg/dL (0.2-1)
[2024-08-18] MEDS: GEMFIBROZIL 600 MG TABLET (FP) PO SCH (19:39)
[2024-08-18] MEDS ORDERED: ACETAMINOPHEN 325 MG TABLET (FP) PO PRN (20:02)
[2024-08-18] MEDS: ACETAMINOPHEN 325 MG TABLET (FP) PO PRN (20:06)
[2024-08-18] MEDS: PANTOPRAZOLE SODIUM 40 MG VIAL IVPUSH SCH (21:28)
[2024-08-18] MEDS ORDERED: INSULIN DETEMIR 12 UNIT SQ SCH (22:00)
[2024-08-18] MEDS ORDERED: MUPIROCIN 2% TOPICAL OINTMENT FOR DECOLONIZATION NS SCH (22:00)
[2024-08-18] MEDS ORDERED: CHLORHEXIDINE GLUCONATE 4% CLEANSER FOR DECOLONIZATION TP SCH (22:00)
[2024-08-19] MEDS: GEMFIBROZIL 600 MG TABLET (FP) PO SCH (01:25)
[2024-08-19 09:19] VITALS: BP 110/73; TEMP 98.1
[2024-08-19 09:20] VITALS: PULSE 60; RESP 18
[2024-08-19] MEDS: ENOXAPARIN NA (PORCINE) 40 MG/0.4 ML DISP.SYRIN SQ SCH (09:34)
[2024-08-19 09:46] LABS: ABSOLUTE IMMATURE GRANULOCYTES 0.02 x10^3/uL (0.0-0.031); BASOPHILS # 0.06 x10^3/uL (0.01-0.08); EOSINOPHIL % 5.4 % (0.8-7.0); EOSINOPHILS # 0.41 x10^3/uL (0.04-0.54); HEMATOCRIT 45.3 % (40.1-51.0); HEMOGLOBIN 15.3 g/dL (13.7-17.5); MCHC 33.8 g/dl (32.3-36.5); MEAN CELL VOLUME 87.3 fl (79.0-92.2); MEAN PLT VOLUME 10.4 fl (9.4-12.4); MONOCYTE # 0.57 x10^3/uL (0.30-0.82); MONOCYTE % 7.5 % (5.3-12.2); PLATELET COUNT 235 x10^3/uL (163-337); RDW 12.9 % (12.1-15.9)
[2024-08-19 09:53] LABS: INR 0.99 (0.83-1.09); PROTHROMBIN TIME (PATIENT) 10.9 SEC (9.7-13.0)
[2024-08-19 10:00] LABS: POTASSIUM 4.3 mmol/L (3.5-5.1)
[2024-08-19 10:04] LABS: BLOOD UREA NITROGEN 10.4 mg/dL (7-18); CALCIUM 9.5 mg/dL (8.5-10.1); MAGNESIUM 1.8 mg/dL (1.8-2.4)
[2024-08-19 10:05] LABS: ALBUMIN 3.4 g/dl (3.4-5.0)
[2024-08-19 10:07] LABS: CREATININE 0.7 mg/dL (0.55-1.3); PHOSPHOROUS 3.1 mg/dL (2.5-4.9); TOT PROT 6.6 g/dl (6.4-8.2)
[2024-08-19 10:09] LABS: BILIRUBIN,TOTAL 0.9 mg/dL (0.2-1)
== END 2024-08-19 13:31 | disposition home or self-care (01) | DRG 282 ==
LOC: JER 13:57 → JERBED 16:41 → JICU 18:31 → J5S 08-18 16:25
PROVIDERS: ADMIT Internal Medicine Pulmonary Disease
DX: K85.90 Acute pancreatitis without necrosis or infection, unspecified (principal); I10 Essential (primary) hypertension; E78.1 Pure hyperglyceridemia; F17.210 Nicotine dependence, cigarettes, uncomplicated; K21.9 Gastro-esophageal reflux disease without esophagitis; E10.65 Type 1 diabetes mellitus with hyperglycemia; K29.60 Other gastritis without bleeding
CPT/HCPCS: 0241U-QW; 36415; 74177-TC; 76705-TC; 80053; 80061; 80307; 81003; 82550; 82962; 83690; 83735; 84100; 84443; 84478; 84484; 85025; 85027; 85610; 93005; 93010; 99285-25; Q9967